=== PATIENT | female | born 1990 | race Two or more races ===

== ENCOUNTER 2024-11-25 15:29 | Outpatient (CLI) | payer OTHER | END 2024-11-25 15:40 | disposition home or self-care (01) | LOC: PRENATAL 15:29 | PROVIDERS: ATTEND Obstetrics & Gynecology Maternal & Fetal Medicine | DX: O44.00 Complete placenta previa NOS or without hemorrhage, unspecified trimester (principal); O34.40 Maternal care for other abnormalities of cervix, unspecified trimester; Z3A.21 21 weeks gestation of pregnancy ==